=== PATIENT | female | born 1930 | race Caucasian/White ===

== ENCOUNTER 2017-12-23 13:07 | Emergency (ER) | payer BC ==
[~2017-12-23] VITALS: Ht 160 cm; Wt 45.5 kg
[~2017-12-23 13:07] MED LIST: ACET500T76 PO; BIMA2.5D EACHEYE; BRIN8DRO EACHEYE; CALC300T4 PO; HYDR25TA6 PO; LOSA100T6 PO; MIRT15TA6 PO; QUET50TA PO
[2017-12-23] MEDS ORDERED: L.E.T SOLUTION TP ONE ×2 (13:30→13:38)
[2017-12-23] MEDS ORDERED: DIPH,PERTUSS(ACELL),TET VAC/PF 0.5 ML IM-VACC ONE ×2 (13:30)
[2017-12-23] MEDS ORDERED: LORazepam 1MG TABLET PO ONE (13:30)
[2017-12-23] MEDS ORDERED: LORazepam 1MG TABLET ONE (13:38)
[2017-12-23 15:10] VITALS: BP 154/98
== END 2017-12-23 17:13 | disposition home or self-care (01) ==
LOC: ED 14:40
DX: S01.81XA Laceration without foreign body of other part of head, initial encounter (principal); I10 Essential (primary) hypertension; R41.0 Disorientation, unspecified; W01.0XXA Fall on same level from slipping, tripping and stumbling without subsequent striking against object, initial encounter; Y93.89 Activity, other specified; Y92.89 Other specified places as the place of occurrence of the external cause; Y99.8 Other external cause status
CPT/HCPCS: 12011; 70450; 72125; 90471; 90715; 99284